=== PATIENT | male | born 1980 | race Caucasian/White ===

== ENCOUNTER 2017-01-22 12:20 | Inpatient (IN) | payer OTHER ==
[~2017-01-22] VITALS: Ht 190.5 cm; Wt 95.0 kg
[2017-01-22] VITALS (7 sets, daily range): BP systolic 117–148; BP diastolic 58–92; PULSE 76–84; RESP 15–18; TEMP 97.8–99.7; O2SAT 96–100
[2017-01-22] MEDS ORDERED: IOHEXOL 350 MG/ML 10 ML VIAL (for RAD DIAG) IVCONTRAST ONE (12:21)
[2017-01-22 12:47] LABS: BASOPHIL % 0.2 % (0.0-2.0); EOSINOPHIL % 0.7 % (0.0-4.0); HEMATOCRIT 46.8 % (39.0-51.0); I-STAT POTASSIUM 3.8 MMOL/L (3.5-4.9); I-STAT SODIUM 140 MMOL/L (138-146); LYMPH % 16.4 % (9.0-44.0); LYMPHOCYTE # 1.1 TH/MM3 (1.0-4.8); MEAN CELL VOLUME 87.5 FL (80.0-100.0); MEAN CORPUSCULAR HEMOGLOBIN 29.9 PG (27.0-34.0); MEAN CORPUSCULAR HGB CONC 34.2 % (32.0-36.0); NEUT % 77.7 % (16.0-70.0); PLATELET COUNT 208 TH/MM3 (150-450); RED BLOOD COUNT 5.35 MIL/MM3 (4.50-5.90); RED CELL DISTRIBUTION WIDTH 13.6 % (11.6-17.2); WHITE BLOOD COUNT 6.5 TH/MM3 (4.0-11.0)
[2017-01-22 12:48] LABS: HEMO FLAGS AUTO DIFF
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
[2017-01-22 12:57] LABS: APTT (PATIENT) 24.3 SEC (24.3-30.1); INTERNATIONAL NORMALIZED RATIO 1.1 RATIO; PROTHROMBIN TIME - PATIENT 11.4 SEC (9.8-11.6)
--- NOTE | 2017-01-22 12:59 | RADRPT ---
EXAM DATE/TIME: 01/22/2017 12:24 [facility] COMPARISON: No previous studies available for comparison. INDICATIONS : Trauma RADIATION DOSE: 38.77 CTDIvol (mGy) MEDICAL HISTORY : Non-responsive. SURGICAL HISTORY : Non-responsive. ENCOUNTER: Initial ACUITY: 1 day PAIN SCALE: 10/10 LOCATION: Bilateral neck TECHNIQUE: Volumetric scanning of the cervical spine was performed. Multiplanar reconstructions in the sagittal, coronal and oblique axial planes were performed. Using automated exposure control and adjustment o f the mA and/or kV according to patient size, radiation dose was kept as low as reasonably achievable to obtain optimal diagnostic quality images. DICOM format image data is available electronically f or review and comparison. FINDINGS: No acute fracture or prevertebral soft tissue swelling is noted. The bony relationship and alignment between C1 and C2 is well maintained. Mild right neural foraminal narrowing is noted at C3-4, C4-5 an d C5-6. Small central disc bulges are noted at C4-5 and C5-6. Mild diffuse disc bulge is noted at C6- 7. Mild spinal stenoses are noted at C4-5, C5-6 and C6-7. CONCLUSION: 1. No acute fracture or prevertebral soft tissue swelling. 2. Mild spinal stenoses at C4-5 and C5-6 and C6-7. 3. Small central disc bulges at C4-5 and C5-6. 4. Mild diffuse disc bulge at C6-7. 5. Mild right neuroforaminal narrowing at C3-4, C4-5 and C5-6. Jacob Siddiqi MD on January 22, 2017 at 12:53 Board Certified Radiologist. This report was verified electronically.
--- NOTE | 2017-01-22 13:04 | RADRPT ---
EXAM DATE/TIME: 01/22/2017 12:31 [facility] COMPARISON: No previous studies available for comparison. INDICATIONS : Trauma IV CONTRAST: 69 cc Omnipaque 350 (iohexol) IV ; Cumulative dose for multiple exams. RADIATION DOSE: 10.11 CTDIvol (mGy) ; Combined studies - Thorax/Abdomen/Pelvis MEDICAL HISTORY : None SURGICAL HISTORY : None. ENCOUNTER: Initial ACUITY: 1 day PAIN SCALE: 10/10 LOCATION: Bilateral chest TECHNIQUE: Volumetric scanning of the chest was performed. Using automated exposure control and adjustment of t he mA and/or kV according to patient size, radiation dose was kept as low as reasonably achievable to obtain optimal diagnostic quality images. DICOM format image data is available electronically for review and comparison. Follow-up recommendations for detected pulmonary nodules are based at a minimum on nodule size and pa tient risk factors according to Fleischner Society Guidelines. FINDINGS: LUNGS: Minimal posterior atelectatic changes are noted bilaterally. There is no consolidation or pneumothora x. No concerning pulmonary nodule is visualized. PLEURA: There is no pleural thickening or pleural effusion. MEDIASTINUM: The heart and great vessels demonstrate no acute abnormality. There is no mediastinal or hilar lymph adenopathy. AXILLAE: Within normal limits. No lymphadenopathy. SKELETAL: Within normal limits for patient age. MISCELLANEOUS: The visualized upper abdominal organs demonstrate no acute abnormality. There is an 8mm low-density l esion within the medial segment of the left lobe of the liver which is too small for accurate density measurement. CONCLUSION: 1. Minimal posterior bibasilar atelectatic changes. 2. No significant sequelae of intrathoracic trauma. 3. 8mm low-density lesion within the medial segment of the left lobe of the liver which is too small for accurate density measurement. Jacob Siddiqi MD on January 22, 2017 at 12:59 Board Certified Radiologist. This report was verified electronically.
[2017-01-22 13:06] LABS: ALCOHOL LESS THAN 3 MG/DL (0-5)
[2017-01-22 13:21] LABS: BANDS 8 % (0-6); METAMYELOCYTES 1 % (0-1); MYELOCYTES 1 % (0-0); POLYS (SEG NEUTROPHILS) 67 % (16-70); WBC DIFF SAMPLE 100
[2017-01-22 13:22] LABS: PLATELET ESTIMATE SMEAR NORMAL (NORMAL); PLATELET MORPHOLOGY NORMAL (NORMAL); SCAN/DIFF FINAL DIFF MANUAL
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
--- NOTE | 2017-01-22 13:24 | RADRPT ---
EXAM DATE/TIME: 01/22/2017 12:33 [facility] COMPARISON: None INDICATIONS : Truama IV CONTRAST: 68 cc Omnipaque 300 (iohexol) IV ; Cumulative dose for multiple exams. ORAL CONTRAST: No oral contrast ingested. RADIATION DOSE: 10.11 CTDIvol (mGy) ; Combined studies - Thorax/Abdomen/Pelvis MEDICAL HISTORY : None SURGICAL HISTORY : None. ENCOUNTER: Initial ACUITY: 1 day PAIN SCALE: 10/10 LOCATION: Bilateral TECHNIQUE: Volumetric scanning of the abdomen and pelvis was performed. Using automated exposure control and ad justment of the mA and/or kV according to patient size, radiation dose was kept as low as reasonably achievable to obtain optimal diagnostic quality images. DICOM format image data is available electro nically for review and comparison. FINDINGS: LOWER LUNGS: Mild bibasilar groundglass opacities consistent with atelectasis. LIVER: Subcentimeter hypodense lesion in the left lobe of the liver which is too small to characterize. The liver is otherwise unremarkable without evidence for acute injury. Gallbladder is unremarkable by CT. SPLEEN: Normal size without lesion. PANCREAS: Within normal limits. KIDNEYS: 2 mm punctate calcified calyceal calculus in the superior pole of the left kidney. Kidneys otherwise demonstrate symmetrical enhancement without evidence for acute injury. No hydronephrosis. No signific ant perinephric collection. ADRENAL GLANDS: Within normal limits. VASCULAR: There is no aortic aneurysm. BOWEL/MESENTERY: The stomach, small bowel, and colon demonstrate no acute abnormality. There is no free intraperitone al air or fluid. ABDOMINAL WALL: Very small fat containing periumbilical anterior abdominal wall hernia. RETROPERITONEUM: There is mild soft tissue stranding and likely subtle hematoma in the right anterior paraspinal regio n. BLADDER: No wall thickening or mass. REPRODUCTIVE: Within normal limits. INGUINAL: There is no lymphadenopathy or hernia. MUSCULOSKELETAL: There is superior endplate compression deformity at L2. Remaining osseous structures appear intact. CONCLUSION: 1. Mild superior endplate compression deformity of L2 vertebral body with adjacent retroperitoneal so ft tissue stranding/trace hematoma consistent with acute traumatic compression fracture. 2. Ancillary findings include 2 mm nonobstructing superior pole calyceal calculus in the left kidney, very small fat containing periumbilical anterior abdominal wall hernia and subcentimeter hypodense l esion in the left lobe of the liver which is too small to fully characterize. Sd Meyers MD on January 22, 2017 at 13:14 Board Certified Radiologist. This report was verified electronically.
--- NOTE | 2017-01-22 13:31 | RADRPT ---
EXAM DATE/TIME: 01/22/2017 12:33 [facility] COMPARISON: No previous studies available for comparison. INDICATIONS : Truama. IV CONTRAST: 69 cc Omnipaque 350 (iohexol) IV ; Cumulative dose for multiple exams. RADIATION DOSE: 10.11 CTDIvol (mGy) MEDICAL HISTORY : None SURGICAL HISTORY : None. ENCOUNTER: Initial ACUITY: 1 day PAIN SCALE: 7/10 LOCATION: Bilateral Umbilical TECHNIQUE: Volumetric scanning of the lumbar spine was performed. Multiplanar reconstructions in the sagittal, coronal and oblique axial planes were performed. Using automated exposure control and adjustment of the mA and/or kV according to patient size, radiation dose was kept as low as reasonably achievable t o obtain optimal diagnostic quality images. DICOM format image data is available electronically for review and comparison. FINDINGS: Mild superior endplate compression fracture at L2. No definite retropulsion of posterior fragments. D egenerative disc disease at L5-S1. L1-L2:. L2-L3: The disc, uncovertebral joints, central canal, foramina, and facets are normal. L3-L4: The disc, uncovertebral joints, central canal, foramina, and facets are normal. L4-L5: The disc, uncovertebral joints, central canal, foramina, and facets are normal. L5-S1: The disc, uncovertebral joints, central canal, foramina, and facets are normal. CONCLUSION: 1. Mild superior endplate compression fracture at L2. 2. Degenerative disc disease L5-S1. 3. Mild broad-based disc bulge at L1-2. Tulio Maldonado MD on January 22, 2017 at 13:27 Board Certified Radiologist. This report was verified electronically.
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
[2017-01-22] MEDS ORDERED: MORPHINE SULFATE 4 MG/ML INJ IV PUSH ONE (14:00)
--- NOTE | 2017-01-22 14:00 | RADRPT ---
EXAM DATE/TIME: 01/22/2017 12:33 [facility] COMPARISON: No previous studies available for comparison. INDICATIONS : TRAUMA parachut did not open. IV CONTRAST: 69 cc Omnipaque 350 (iohexol) IV ; Cumulative dose for multiple exams. RADIATION DOSE: 10.11 CTDIvol (mGy) ; Combined studies MEDICAL HISTORY : None SURGICAL HISTORY : None. ENCOUNTER: Initial ACUITY: 1 day PAIN SCALE: 10/10 LOCATION: Bilateral chest TECHNIQUE: Volumetric scanning of the thoracic spine was performed. Multiplanar reconstructions in the sagittal , coronal and oblique axial planes were performed. Using automated exposure control and adjustment o f the mA and/or kV according to patient size, radiation dose was kept as low as reasonably achievable to obtain optimal diagnostic quality images. DICOM format image data is available electronically fo r review and comparison. FINDINGS: The vertebral bodies of the thoracic spine are in normal alignment without evidence of subluxation. Vertebral body height is maintained. No fractures are seen. Schmorl node deformity superior endplate T11. T1-T2: Normal. T2-T3: The thecal sac has a normal diameter. No evidence of disc bulge or protrusion. T3-T4: The thecal sac has a normal diameter. No evidence of disc bulge or protrusion. T4-T5: The thecal sac has a normal diameter. No evidence of disc bulge or protrusion. T5-T6: The thecal sac has a normal diameter. No evidence of disc bulge or protrusion. T6-T7: The thecal sac has a normal diameter. No evidence of disc bulge or protrusion. T7-T8: The thecal sac has a normal diameter. No evidence of disc bulge or protrusion. T8-T9: The thecal sac has a normal diameter. No evidence of disc bulge or protrusion. T9-T10: The thecal sac has a normal diameter. No evidence of disc bulge or protrusion. T10-T11: The thecal sac has a normal diameter. No evidence of disc bulge or protrusion. T11-T12: The thecal sac has a normal diameter. No evidence of disc bulge or protrusion. T12-L1: The thecal sac has a normal diameter. No evidence of disc bulge or protrusion. CONCLUSION: 1. No fracture or subluxation. Tulio Maldonado MD on January 22, 2017 at 13:23 Board Certified Radiologist. This report was verified electronically.
[2017-01-22] MEDS ORDERED: ONDANSETRON HCL 4 MG/2 ML VIAL IV PUSH PRN (16:45)
[2017-01-22] MEDS ORDERED: Post-op Orders (for Pharmacy) XX ONE (16:45)
[2017-01-22] MEDS ORDERED: NALOXONE HCL 0.4 MG/ML AMP IV PUSH PRN (16:45)
[2017-01-22] MEDS: PANTOPRAZOLE SOD 40 MG DELAYED RELEASE TAB PO SCH (17:38)
[2017-01-22] MEDS: oxyCODONE/ACETAMINOPHEN 5 MG/325 MG TAB PO PRN (17:38)
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
[2017-01-22] MEDS: MORPHINE SULFATE 2 MG/ML INJ IV PRN ×3 (18:32→23:35)
[2017-01-22] MEDS: SODIUM CHLORIDE 0.9% FLUSH 10 ML FLUSH IV FLUSH PRN ×2 (18:32→23:36)
[2017-01-22] MEDS ORDERED: ENALAPRILAT 1.25 MG/ML VIAL IV PUSH PRN (19:30)
[2017-01-22] MEDS ORDERED: LACTULOSE SYRUP 20 GM/30 ML CUP PO PRN (20:00)
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
[2017-01-22] MEDS ORDERED: DOCUSATE SODIUM 100 MG CAP PO SCH (21:00)
[2017-01-22] MEDS: REMOVE OLD LIDOCAINE PATCH T-DERMAL SCH (21:00)
[2017-01-22] MEDS: ACETAMINOPHEN 1000 MG/100 ML 100 ML IV SCH (21:14)
[2017-01-22] MEDS: METHOCARBAMOL 500 MG TAB PO SCH (21:17)
[2017-01-22] MEDS: SODIUM CHLORIDE 0.9% FLUSH 10 ML FLUSH IV FLUSH SCH (21:17)
[2017-01-22] MEDS: DOCUSATE SODIUM 50 MG/SENNA 8.6 MG TAB PO SCH (21:17)
[2017-01-22] MEDS: LIDOCAINE HCL 5% PATCH T-DERMAL SCH (21:56)
[2017-01-23] MEDS: ACETAMINOPHEN 1000 MG/100 ML 100 ML IV SCH ×3 (02:26→14:30)
[2017-01-23] MEDS: MORPHINE SULFATE 2 MG/ML INJ IV PRN ×5 (02:26→21:52)
[2017-01-23] MEDS: SODIUM CHLORIDE 0.9% FLUSH 10 ML FLUSH IV FLUSH PRN ×3 (02:27→19:18)
[2017-01-23 03:10] VITALS: BP 119/63; PULSE 68; RESP 17; TEMP 98.7; O2SAT 95
[2017-01-23] MEDS: oxyCODONE/ACETAMINOPHEN 5 MG/325 MG TAB PO PRN ×2 (04:13→11:47)
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
[2017-01-23] MEDS: METHOCARBAMOL 500 MG TAB PO SCH ×3 (05:41→21:51)
[2017-01-23 07:12] LABS: BASOPHIL % 0.3 % (0.0-2.0); EOSINOPHIL # 0.1 TH/MM3 (0-0.4); EOSINOPHIL % 1.5 % (0.0-4.0); HEMATOCRIT 45.4 % (39.0-51.0); HEMO FLAGS DIFF FINAL; LYMPH % 23.3 % (9.0-44.0); LYMPHOCYTE # 1.4 TH/MM3 (1.0-4.8); MEAN CELL VOLUME 87.2 FL (80.0-100.0); MEAN CORPUSCULAR HEMOGLOBIN 29.7 PG (27.0-34.0); MEAN CORPUSCULAR HGB CONC 34.1 % (32.0-36.0); MONO % 9.2 % (0.0-8.0); NEUT % 65.7 % (16.0-70.0); PLATELET COUNT 152 TH/MM3 (150-450); RED CELL DISTRIBUTION WIDTH 13.3 % (11.6-17.2)
[2017-01-23 07:27] VITALS: BP 111/68; PULSE 70; RESP 18; TEMP 98.7; O2SAT 96
[2017-01-23] MEDS: SODIUM CHLORIDE 0.9% FLUSH 10 ML FLUSH IV FLUSH SCH ×2 (08:43→21:48)
[2017-01-23] MEDS: DOCUSATE SODIUM 50 MG/SENNA 8.6 MG TAB PO SCH ×2 (08:43→21:48)
[2017-01-23] MEDS: LIDOCAINE HCL 5% PATCH T-DERMAL SCH (08:44)
--- NOTE | 2017-01-23 09:35 | PD.CONS ---
HPI Consult Requested By Primary Care Physician Unknown Past Family Social History Allergies: Coded Allergies: No Known Allergies (Unverified , 01/22/17) Physical Exam Vital Signs Vital Signs Date Time Temp Pulse Resp B/P (MAP) Pulse Ox O2 Delivery O2 Flow Rate FiO2 01/23/17 07:27 98.7 70 18 111/68 (82) 96 01/23/17 05:13 18 01/23/17 03:10 98.7 68 17 119/63 (81) 95 01/22/17 23:40 18 01/22/17 23:05 98.6 78 16 117/58 (77) 98 01/22/17 21:44 18 01/22/17 20:28 99.7 84 17 125/70 (88) 96 01/22/17 17:55 97.8 80 18 133/83 (100) 97 01/22/17 15:10 85 17 147/77 (100) 98 01/22/17 13:16 76 15 99 01/22/17 13:11 98.2 76 15 148/92 (110) 99 01/22/17 13:11 99 Room Air 01/22/17 13:11 98.2 76 15 148/92 (110) 99 01/22/17 13:05 98.2 76 15 148/92 (110) 99 01/22/17 12:22 100 21 Laboratory Laboratory Tests Test 01/22/17 12:24 01/23/17 06:15 White Blood Count 6.5 6.0 Red Blood Count 5.35 5.20 Hemoglobin 16.0 15.5 Bedside Hemoglobin 15.0 Hematocrit 46.8 45.4 Bedside Hematocrit 44.0 Mean Corpuscular Volume 87.5 87.2 Mean Corpuscular Hemoglobin 29.9 29.7 Mean Corpuscular Hemoglobin Concent 34.2 34.1 Red Cell Distribution Width 13.6 13.3 Platelet Count 208 152 Mean Platelet Volume 8.4 8.3 Neutrophils (%) (Auto) 77.7 65.7 Lymphocytes (%) (Auto) 16.4 23.3 Monocytes (%) (Auto) 5.0 9.2 Eosinophils (%) (Auto) 0.7 1.5 Basophils (%) (Auto) 0.2 0.3 Neutrophils # (Auto) 5.0 4.0 Lymphocytes # (Auto) 1.1 1.4 Monocytes # (Auto) 0.3 0.6 Eosinophils # (Auto) 0.0 0.1 Basophils # (Auto) 0.0 0.0 CBC Comment AUTO DIFF DIFF FINAL Differential Total Cells Counted 100 Neutrophils % (Manual) 67 Band Neutrophils % 8 Lymphocytes % 17 Monocytes % 6 Neutrophils # (Manual) 5.0 Metamyelocytes 1 Myelocytes 1 Differential Comment FINAL DIFF MANUAL Platelet Estimate NORMAL Platelet Morphology Comment NORMAL Prothrombin Time 11.4 Prothromb Time International Ratio 1.1 Activated Partial Thromboplast Time 24.3 Bedside Sodium 140 Bedside Potassium 3.8 Bedside Chloride 105 Bedside Blood Urea Nitrogen 18 Bedside Creatinine 1.1 Bedside Glucose 102 Ethyl Alcohol Level LESS THAN 3 Result Diagram: 01/23/17 0615 Mulugeta Muñoz MD Jan 23, 2017 09:35
[2017-01-23 11:51] VITALS: BP 119/76; PULSE 69; RESP 18; TEMP 98.1; O2SAT 97
--- NOTE | 2017-01-23 13:48 | EKG ---
Date Performed: 01/22/2017 Time Performed: 13:33:56 PTAGE: 89 years EKG: Sinus rhythm POSSIBLE LEFT ATRIAL ENLARGEMENT BORDERLINE ECG NO PREVIOUS TRACING DOCTOR: Brittany Jones Interpretating Date/Time 01/23/2017 13:46:42
--- NOTE | 2017-01-23 14:08 | HHI.NSPN ---
Note Status Status: Progress Note Interval History Diagnosis L2 fracture Interval History This is a 36 year-old male who is a [employer], was involved in a exercise when he hit his head probably against the edge of [employer] exit ramp and lost consciousness. No seizure activity reported. No tongue biting. No incontinence of stool or urine. He came down on a parachute and was brought in as Priority Two Trauma Alert to our institution, complaining of pain in his left chest and back. The patient was worked up and found to have L2 end plate fracture without any protrusion or neurologic deficit. He also has left chest pain but no rib fractures are noted. He was moving all 4 extremities. He denies any focal motor weakness. He denies any sensory loss. A neurosurgical consultation was requested 01/23. She remains very painful. MRI of the spine was then. No focal deficits Labs, Micro, & Vital Signs Results Date Time Temp Pulse Resp B/P (MAP) Pulse Ox O2 Delivery O2 Flow Rate FiO2 01/23/17 11:51 98.1 69 18 119/76 (90) 97 01/23/17 07:27 98.7 70 18 111/68 (82) 96 01/23/17 05:13 18 01/23/17 03:10 98.7 68 17 119/63 (81) 95 01/22/17 23:40 18 01/22/17 23:05 98.6 78 16 117/58 (77) 98 01/22/17 21:44 18 01/22/17 20:28 99.7 84 17 125/70 (88) 96 01/22/17 17:55 97.8 80 18 133/83 (100) 97 01/22/17 15:10 85 17 147/77 (100) 98 01/24/17 07:00 Output Total 1000 ml Balance -1000 ml Constitutional Vital Signs Date Time Temp Pulse Resp B/P (MAP) Pulse Ox O2 Delivery O2 Flow Rate FiO2 01/23/17 11:51 98.1 69 18 119/76 (90) 97 01/23/17 07:27 98.7 70 18 111/68 (82) 96 01/23/17 05:13 18 01/23/17 03:10 98.7 68 17 119/63 (81) 95 01/22/17 23:40 18 01/22/17 23:05 98.6 78 16 117/58 (77) 98 01/22/17 21:44 18 01/22/17 20:28 99.7 84 17 125/70 (88) 96 01/22/17 17:55 97.8 80 18 133/83 (100) 97 01/22/17 15:10 85 17 147/77 (100) 98 01/24/17 07:00 Output Total 1000 ml Balance -1000 ml Review of Systems Except as stated in HPI: all other systems reviewed are Neg Physical Exam Mr Darnell is alert, awake and oriented to time, place and person. Speech is fluent. Higher cognitive functions are normal. GCS 15 Cranial nerve examination demonstrates the pupils to be equal, round, and reactive to light. Extra-ocular movements are intact. Facial motor and sensory function are normal and symmetrical. Gross hearing is intact, bilaterally. The uvula is midline and elevates symmetrically with the soft palate. Sternocleidomastoid and trapezius muscles have normal and symmetrical strength. Other cranial nerves are intact. Neck is soft and supple. Cervical spine has a full range of motion in anterior flexion, extension, lateral bending, and rotation without pain. There is no tenderness to palpation to the spinous processes or paraspinal muscles. Muscle testing reveals normal bulk and tone overall without rigidity, spasticity , fasciculations, or atrophy. Muscle strength is 5/5 in all muscle groups of both upper extremities including deltoid, biceps, triceps, brachioradialis, wrist extension and truck farmer. In the lower extremities, strength is 5/5 in both iliopsoas, quadriceps, hamstrings, plantar flexion, dorsiflexion, and extensor hallicus longus. Sensory examination is intact to light touch and sharp/dull discrimination in both the upper and lower extremities, symmetrically. Deep tendon reflexes are 2+ and symmetrical in the biceps, triceps, and brachioradialis, bilaterally, in the upper extremities. In the lower extremities , the patellar and Achilles are 2+, bilaterally. There is a bilateral plantar flexion response. Hoffmanns sign is negative. There is no clonus or other abnormal reflexes noted. Cerebellar examination is intact to [id number] test, rapid rhythmic alternating motion. There is no dysmetria, dysdiadochokinesia, truncal ataxia, or tremor. Medications Current Medications Current Medications Iohexol (Omnipaque 350 Inj) 69 ml STK-MED ONCE IVCONTRAST Last administered on 01/22/17 12:21; Start 01/22/17 at 12:21; Stop 01/22/17 at 13:38; Status DC Morphine Sulfate (Morphine Inj) 4 mg ONCE ONCE IV PUSH Last administered on 14:05; Start 01/22/17 at 14:00; Stop 01/22/17 at 14:01; Status DC Sodium Chloride (NS Flush) 2 ml UNSCH PRN IV FLUSH FLUSH AFTER USING IV ACCESS Last administered on 01/23/17 02:27; Start 01/22/17 at 16:45 Sodium Chloride (NS Flush) 2 ml BID IV FLUSH Last administered on 01/23/17 08 :43; Start 01/22/17 at 21:00 Ondansetron HCl (Zofran Inj) 4 mg Q6H PRN IV PUSH NAUSEA OR VOMITING; Start at 16:45 Pantoprazole Sodium (Protonix) 40 mg Q24H PO Last administered on 01/22/17 17 :38; Start 01/22/17 at 18:00 Docusate Sodium (Colace) 100 mg BID PO ; Start 01/22/17 at 21:00; Stop at 21:00; Status DC Miscellaneous Information (Post-op Orders (for Pharmacy)) STAT ONCE XX ; Start 01/22/17 at 16:45; Stop 01/22/17 at 17:25; Status DC Oxycodone/ Acetaminophen (Percocet 5-325 Mg) 1 tab Q4H PRN PO PAIN SCALE 3 TO 5 Last administered on 01/23/17 11:47; Start 01/22/17 at 16:45 Morphine Sulfate (Morphine Inj) 4 mg Q2H PRN IV PAIN 6-10 Last administered on 01/23/17 08:44; Start 01/22/17 at 17:30 Naloxone HCl (Narcan Inj) 0.4 mg UNSCH PRN IV PUSH SEE LABEL COMMENTS; Start 01/22/17 at 16:45 Methocarbamol (Robaxin) 500 mg Q8HR PO Last administered on 01/23/17 05:41; Start 01/22/17 at 22:00 Lidocaine HCl (Lidoderm 5% Patch.12 Hr) 1 patch DAILY T-DERMAL Last administered on 01/23/17 08:44; Start 01/22/17 at 19:30 Acetaminophen 100 ml @ 400 mls/hr Q6H IV Last administered on 01/23/17 08:19 ; Start 01/22/17 at 19:30; Stop 01/23/17 at 19:29 Senna/Docusate Sodium (Inna-Colace) 2 tab BID PO Last administered on 08:43; Start 01/22/17 at 21:00 Lactulose (Lactulose Liq) 30 ml DAILY PRN PO No BM in 2 days; Start 01/22/17 at 20:00 Enalaprilat (Vasotec Inj) 1.25 mg Q6H PRN IV PUSH SBP>160, DBP>90; Start 01/22 at 19:30 Miscellaneous Information 1 Q24H T-DERMAL ; Start 01/22/17 at 21:00 Medical Decision Making MDM Remarks Last 48 hours Impressions Chest X-Ray 01/23/17 0600 Signed Impressions: Service Date/Time: January 04:50 - CONCLUSION: Patchy non-consolidative medial left lower lung infiltrates. Chase Alvarenga MD Thoracic Spine CT 01/22/17 1224 Signed Impressions: Service Date/Time: Sunday, January 22, 2017 12:33 - CONCLUSION: 1. No fracture or subluxation. Tulio Maldonado MD Lumbar Spine CT 01/22/17 1224 Signed Impressions: Service Date/Time: Sunday, January 22, 2017 12:33 - CONCLUSION: 1. Mild superior endplate compression fracture at L2. 2. Degenerative disc disease L5-S1. 3. Mild broad-based disc bulge at L1-2. Tulio Maldonado MD Head CT 01/22/17 1224 Signed Impressions: Service Date/Time: Sunday, January 22, 2017 12:24 - CONCLUSION: No acute intracranial disease. Tulio Maldonado MD Chest X-Ray 01/22/17 1224 Signed Impressions: Service Date/Time: Sunday, January 22, 2017 12:22 - CONCLUSION: No acute disease. Jacob Siddiqi MD Chest CT 01/22/17 1224 Signed Impressions: Service Date/Time: Sunday, January 22, 2017 12:31 - CONCLUSION: 1. Minimal posterior bibasilar atelectatic changes. 2. No significant sequelae of intrathoracic trauma. 3. 8mm low-density lesion within the medial segment of the left lobe of the liver which is too small for accurate density measurement. Jacob Siddiqi MD Cervical Spine CT 01/22/17 1224 Signed Impressions: Service Date/Time: Sunday, January 22, 2017 12:24 - CONCLUSION: 1. No acute fracture or prevertebral soft tissue swelling. 2. Mild spinal stenoses at C4-5 and C5-6 and C6-7. 3. Small central disc bulges at C4-5 and C5-6. 4. Mild diffuse disc bulge at C6-7. 5. Mild right neuroforaminal narrowing at C3-4, C4-5 and C5-6. Jacob Siddiqi MD Abdomen/Pelvis CT 01/22/17 1224 Signed Impressions: Service Date/Time: Sunday, January 22, 2017 12:33 - CONCLUSION: 1. Mild superior endplate compression deformity of L2 vertebral body with adjacent retroperitoneal soft tissue stranding/trace hematoma consistent with acute traumatic compression fracture. 2. Ancillary findings include 2 mm nonobstructing superior pole calyceal calculus in the left kidney, very small fat containing periumbilical anterior abdominal wall hernia and subcentimeter hypodense lesion in the left lobe of the liver which is too small to fully characterize. Sd Meyers MD Lumbar Spine MRI 01/22/17 0000 Signed Impressions: Service Date/Time: Sunday, January 22, 2017 19:38 - CONCLUSION: 1. Mild superior endplate compression fracture of L2 without significant retropulsion. 2. Annular tear and small disc herniation at L1-2 centrally but without stenosis. No other fracture. Johnathan Sauer MD Attending Statement Neuro. cerebral concussion. Ccontinue neuro checks in a serial fashion. L2 fracture Continue Pain control with narcotics as needed. TLSo brace Pulmonary. Continue aggressive pulmonary toilette, nasotracheal suction, and breathing treatments with nebulizers. Daily PT and OT. Ambulate today Nutrition. Oral diet Renal. Continue to monitor closely urine output, BUN and creatinine Endocrine. Continue to Monitor serial Acu checks and SSI as needed in detail ID continue to monitor for signs of infection Continue Protonix for stress ulcer prophylaxis Continue Navjot hosmichael and SCD's for DVT prophylaxis Mulugeta Muñoz MD Jan 23, 2017 14:08
[2017-01-23 16:10] VITALS: BP 130/73; PULSE 69; RESP 18; TEMP 98; O2SAT 95
[2017-01-23] MEDS: PANTOPRAZOLE SOD 40 MG DELAYED RELEASE TAB PO SCH (17:19)
[2017-01-23] MEDS ORDERED: KETOROLAC TROMETHAMINE 10 MG TAB PO PRN (20:30)
[2017-01-23 20:36] VITALS: BP_SYST 137; PULSE 78; RESP 16; TEMP 98.9; O2SAT 99
[2017-01-23] MEDS: REMOVE OLD LIDOCAINE PATCH T-DERMAL SCH (21:00)
[2017-01-23 22:39] LABS: BICARBONATE 28.1 MEQ/L (21.0-32.0)
[2017-01-23 22:40] LABS: POTASSIUM 4.1 MEQ/L (3.5-5.1)
[2017-01-23 23:43] VITALS: BP 137/80; PULSE 84; RESP 17; TEMP 102.1; O2SAT 95
[2017-01-24] VITALS (7 sets, daily range): BP systolic 120–137; BP diastolic 70–84; PULSE 56–65; RESP 18–20; TEMP 95.7–99.9; O2SAT 95–97
[2017-01-24] MEDS ORDERED: ACETAMINOPHEN 325 MG TAB PO PRN (00:15)
[2017-01-24] MEDS: MORPHINE SULFATE 2 MG/ML INJ IV PRN (01:41)
[2017-01-24] MEDS: METHOCARBAMOL 500 MG TAB PO SCH ×3 (05:13→20:28)
--- NOTE | 2017-01-24 07:08 | HHI.PR ---
Subjective Subjective Notes Late entry for 01/23/17 Complains of back and rib pain Asking when he can fly home to [place] Objective Vitals/I&O Vital Signs Date Time Temp Pulse Resp B/P (MAP) Pulse Ox O2 Delivery O2 Flow Rate FiO2 01/24/17 05:27 60 18 120/70 (87) 96 01/24/17 05:16 97.9 01/22/17 13:11 Room Air 01/22/17 12:22 21 Labs Laboratory Tests Test 01/23/17 21:50 Blood Urea Nitrogen 8 Creatinine 1.03 Random Glucose 106 Calcium Level 8.6 Sodium Level 142 Potassium Level 4.1 Chloride Level 105 Carbon Dioxide Level 28.1 Anion Gap 9 Estimat Glomerular Filtration Rate 82 Radiology Last Impressions Chest X-Ray 01/23/17 0600 Signed Impressions: Service Date/Time: January 04:50 - CONCLUSION: Patchy non-consolidative medial left lower lung infiltrates. Chase Alvarenga MD Thoracic Spine CT 01/22/17 1224 Signed Impressions: Service Date/Time: Sunday, January 22, 2017 12:33 - CONCLUSION: 1. No fracture or subluxation. Tulio Maldonado MD Lumbar Spine CT 01/22/174 Signed Impressions: Service Date/Time: Sunday, January 22, 2017 12:33 - CONCLUSION: 1. Mild superior endplate compression fracture at L2. 2. Degenerative disc disease L5-S1. 3. Mild broad-based disc bulge at L1-2. Tulio Maldonado MD Head CT 01/22/17 1224 Signed Impressions: Service Date/Time: Sunday, January 22, 2017 12:24 - CONCLUSION: No acute intracranial disease. Tulio Maldonado MD Chest CT 01/22/17 1224 Signed Impressions: Service Date/Time: Sunday, January 22, 2017 12:31 - CONCLUSION: 1. Minimal posterior bibasilar atelectatic changes. 2. No significant sequelae of intrathoracic trauma. 3. 8mm low-density lesion within the medial segment of the left lobe of the liver which is too small for accurate density measurement. Jacob Siddiqi MD Cervical Spine CT 01/22/17 1224 Signed Impressions: Service Date/Time: Sunday, January 22, 2017 12:24 - CONCLUSION: 1. No acute fracture or prevertebral soft tissue swelling. 2. Mild spinal stenoses at C4-5 and C5-6 and C6-7. 3. Small central disc bulges at C4-5 and C5-6. 4. Mild diffuse disc bulge at C6-7. 5. Mild right neuroforaminal narrowing at C3-4, C4-5 and C5-6. Jacob Siddiqi MD Abdomen/Pelvis CT 01/22/17 1224 Signed Impressions: Service Date/Time: Sunday, January 22, 2017 12:33 - CONCLUSION: 1. Mild superior endplate compression deformity of L2 vertebral body with adjacent retroperitoneal soft tissue stranding/trace hematoma consistent with acute traumatic compression fracture. 2. Ancillary findings include 2 mm nonobstructing superior pole calyceal calculus in the left kidney, very small fat containing periumbilical anterior abdominal wall hernia and subcentimeter hypodense lesion in the left lobe of the liver which is too small to fully characterize. Sd Meyers MD Lumbar Spine MRI 01/22/17 0000 Signed Impressions: Service Date/Time: Sunday, January 22, 2017 19:38 - CONCLUSION: 1. Mild superior endplate compression fracture of L2 without significant retropulsion. 2. Annular tear and small disc herniation at L1-2 centrally but without stenosis. No other fracture. Johnathan Sauer MD Narrative Exam GENERAL: 36 year old well nourished male lying in bed. SKIN: Warm and dry. HEAD: Atraumatic. Normocephalic. EYES: Pupils equal and round. No scleral icterus. No injection or drainage. ENT: No nasal bleeding or discharge. Mucous membranes pink and moist. NECK: Trachea midline. No JVD. CARDIOVASCULAR: Regular rate and rhythm. RESPIRATORY: No accessory muscle use. Clear to auscultation. Breath sounds equal bilaterally. GASTROINTESTINAL: Abdomen soft, non-tender, nondistended. MUSCULOSKELETAL: Extremities without cyanosis, or edema. MAEW, + perfused NEUROLOGICAL: Awake and alert. Normal speech. A/P Assessment and Plan [place]: [employer] jumped from a plane, striking his head on the plane as he jumped and losing consciousness. The safety mechanism deployed his parachute and patient landed, still unconscious. Complains of back and left chest pain. GCS = 15 INJURIES: Concussion L2 superior endplate fx Retroperitoneal hematoma ? pulm contusion Aspiration Diet: Regular Pulm: IS Pain: Morphine IV, Percocet, Robaxin, Lidoderm patch, IV Ofirmev Activity: OOB. PT ordered GI: PO Protonix Bowel: Inna-colace 2 tabs. PRN Lactulose. LBM 0 DVT: SCDs Concussion Supportive care Avoid second head injury Post-concussive education Neuropsychology consulted L2 superior endplate fx Neurosurgery consulted Nonoperative management Pain control TLSO brace when OOB OOB with PT MRI Lumbar- Retroperitoneal hematoma Hgb stable ? pulm contusion, Aspiration Supportive care Monitor for fevers CXR shows left sided infiltrate, F/U CXR in AM No leukocytosis Pain control Pulmonary toileting OOB Plan of care d/w RN, patient and his at bedside. CM consulted to assist with DC planning. Dispo plan depends on patient's progress with PT. Brigitte Jiménez Jan 24, 2017 07:08
[2017-01-24] MEDS: IBUPROFEN 800 MG TAB PO SCH ×3 (07:53→18:32)
[2017-01-24] MEDS: oxyCODONE/ACETAMINOPHEN 10 MG/325 MG TAB PO PRN ×4 (07:54→20:28)
[2017-01-24] MEDS: LIDOCAINE HCL 5% PATCH T-DERMAL SCH (09:00)
[2017-01-24] MEDS: SODIUM CHLORIDE 0.9% FLUSH 10 ML FLUSH IV FLUSH SCH ×2 (09:00→20:28)
[2017-01-24 11:41] LABS: BASOPHIL % 0.5 % (0.0-2.0); EOSINOPHIL # 0.2 TH/MM3 (0-0.4); EOSINOPHIL % 3.4 % (0.0-4.0); HEMATOCRIT 47.5 % (39.0-51.0); HEMO FLAGS DIFF FINAL; LYMPH % 24.4 % (9.0-44.0); LYMPHOCYTE # 1.6 TH/MM3 (1.0-4.8); MEAN CELL VOLUME 87.6 FL (80.0-100.0); MEAN CORPUSCULAR HGB CONC 34.3 % (32.0-36.0); MONO % 8.8 % (0.0-8.0); NEUT % 62.9 % (16.0-70.0); PLATELET COUNT 171 TH/MM3 (150-450); RED BLOOD COUNT 5.41 MIL/MM3 (4.50-5.90); RED CELL DISTRIBUTION WIDTH 13.6 % (11.6-17.2); WHITE BLOOD COUNT 6.4 TH/MM3 (4.0-11.0)
[2017-01-24] MEDS: LEVOFLOXACIN 500 MG TAB PO SCH (11:55)
[2017-01-24] MEDS: DOCUSATE SODIUM 50 MG/SENNA 8.6 MG TAB PO SCH ×2 (11:55→20:27)
--- NOTE | 2017-01-24 12:29 | HHI.PR ---
Subjective Subjective Notes Fevers overnight OOB with PT this AM- increased pain reported with sitting Objective Vitals/I&O Vital Signs Date Time Temp Pulse Resp B/P (MAP) Pulse Ox O2 Delivery O2 Flow Rate FiO2 01/24/17 11:58 98.3 63 18 137/84 (101) 96 01/22/17 13:11 Room Air 01/22/17 12:22 21 Labs Laboratory Tests Test 01/23/17 21:50 01/24/17 10:52 Blood Urea Nitrogen 8 Creatinine 1.03 Random Glucose 106 Calcium Level 8.6 Sodium Level 142 Potassium Level 4.1 Chloride Level 105 Carbon Dioxide Level 28.1 Anion Gap 9 Estimat Glomerular Filtration Rate 82 White Blood Count 6.4 Red Blood Count 5.41 Hemoglobin 16.3 Hematocrit 47.5 Mean Corpuscular Volume 87.6 Mean Corpuscular Hemoglobin 30.0 Mean Corpuscular Hemoglobin Concent 34.3 Red Cell Distribution Width 13.6 Platelet Count 171 Mean Platelet Volume 8.1 Neutrophils (%) (Auto) 62.9 Lymphocytes (%) (Auto) 24.4 Monocytes (%) (Auto) 8.8 Eosinophils (%) (Auto) 3.4 Basophils (%) (Auto) 0.5 Neutrophils # (Auto) 4.0 Lymphocytes # (Auto) 1.6 Monocytes # (Auto) 0.6 Eosinophils # (Auto) 0.2 Basophils # (Auto) 0.0 CBC Comment DIFF FINAL Differential Comment Radiology Last Impressions Chest X-Ray 01/23/17 0600 Signed Impressions: Service Date/Time: January 04:50 - CONCLUSION: Patchy non-consolidative medial left lower lung infiltrates. Chase Alvarenga MD Thoracic Spine CT 01/22/17 1224 Signed Impressions: Service Date/Time: Sunday, January 22, 2017 12:33 - CONCLUSION: 1. No fracture or subluxation. Tulio Maldonado MD Lumbar Spine CT 01/22/17 1224 Signed Impressions: Service Date/Time: Sunday, January 22, 2017 12:33 - CONCLUSION: 1. Mild superior endplate compression fracture at L2. 2. Degenerative disc disease L5-S1. 3. Mild broad-based disc bulge at L1-2. Tulio Maldonado MD Head CT 01/22/17 1224 Signed Impressions: Service Date/Time: Sunday, January 22, 2017 12:24 - CONCLUSION: No acute intracranial disease. Tulio Maldonado MD Chest CT 01/22/17 1224 Signed Impressions: Service Date/Time: Sunday, January 22, 2017 12:31 - CONCLUSION: 1. Minimal posterior bibasilar atelectatic changes. 2. No significant sequelae of intrathoracic trauma. 3. 8mm low-density lesion within the medial segment of the left lobe of the liver which is too small for accurate density measurement. Jacob Siddiqi MD Cervical Spine CT 01/22/17 1224 Signed Impressions: Service Date/Time: Sunday, January 22, 2017 12:24 - CONCLUSION: 1. No acute fracture or prevertebral soft tissue swelling. 2. Mild spinal stenoses at C4-5 and C5-6 and C6-7. 3. Small central disc bulges at C4-5 and C5-6. 4. Mild diffuse disc bulge at C6-7. 5. Mild right neuroforaminal narrowing at C3-4, C4-5 and C5-6. Jacob Siddiqi MD Abdomen/Pelvis CT 01/22/17 1224 Signed Impressions: Service Date/Time: Sunday, January 22, 2017 12:33 - CONCLUSION: 1. Mild superior endplate compression deformity of L2 vertebral body with adjacent retroperitoneal soft tissue stranding/trace hematoma consistent with acute traumatic compression fracture. 2. Ancillary findings include 2 mm nonobstructing superior pole calyceal calculus in the left kidney, very small fat containing periumbilical anterior abdominal wall hernia and subcentimeter hypodense lesion in the left lobe of the liver which is too small to fully characterize. Sd Meyers MD Lumbar Spine MRI 01/22/17 0000 Signed Impressions: Service Date/Time: Sunday, January 22, 2017 19:38 - CONCLUSION: 1. Mild superior endplate compression fracture of L2 without significant retropulsion. 2. Annular tear and small disc herniation at L1-2 centrally but without stenosis. No other fracture. Johnathan Sauer MD Narrative Exam GENERAL: 36 year old well nourished male lying in bed. SKIN: Warm and dry. HEAD: Atraumatic. Normocephalic. EYES: Pupils equal and round. No scleral icterus. No injection or drainage. ENT: No nasal bleeding or discharge. Mucous membranes pink and moist. NECK: Trachea midline. No JVD. CARDIOVASCULAR: Regular rate and rhythm. RESPIRATORY: No accessory muscle use. Clear to auscultation. Breath sounds equal bilaterally. GASTROINTESTINAL: Abdomen soft, non-tender, nondistended. MUSCULOSKELETAL: Extremities without cyanosis, or edema. MAEW, + perfused NEUROLOGICAL: Awake and alert. Normal speech. A/P Assessment and Plan [place]: [employer] jumped from a plane, striking his head on the plane as he jumped and losing consciousness. The safety mechanism deployed his parachute and patient landed, still unconscious. Complains of back and left chest pain. GCS = 15 INJURIES: Concussion L2 superior endplate fx Retroperitoneal hematoma ? pulm contusion Aspiration Diet: Regular Pulm: IS Pain: Morphine IV, Percocet, Robaxin, Lidoderm patch, Motrin Activity: OOB. PT ordered GI: PO Protonix Bowel: Inna-colace 2 tabs. PRN Lactulose. LBM 0 DVT: SCDs, Lovenox 40 QD Concussion Supportive care Avoid second head injury Post-concussive education Neuropsychology consulted L2 superior endplate fx Neurosurgery consulted Nonoperative management Pain control TLSO brace when OOB OOB with PT MRI Lumbar- Lovenox Retroperitoneal hematoma Hgb stable ? pulm contusion, Aspiration Supportive care Tmax 102.1 01/23: CXR shows left sided infiltrate Added PO Levaquin No leukocytosis Monitor fevers Pain control Pulmonary toileting OOB Plan of care d/w RN and patient at bedside. CM consulted to assist with DC planning. Plan to DC home when afebrile x 24 hours Brigitte Jiménez Jan 24, 2017 12:29
[2017-01-24] MEDS: ENOXAPARIN SODIUM 40 MG/0.4 ML SYRINGE SQ SCH (13:45)
--- NOTE | 2017-01-24 14:17 | PD.HHIRBSE ---
Patient History Record/History Review Reason for Referral: The patient is a 36 year old right handed male status post concussion sustained on 01/22/2017. This patient was exiting an airplane and struck his head on the ramp as he disembarked. His parachute opened during his descent, and he was found responsive on the ground. He was admitted to [facility] with an L2 end plate fracture and left chest pain, and probable concussion. His head CT was within normal limits and his labs were normal. He is referred for baseline neurobehavioral status examination per trauma protocol to assess cognitive, behavioral and emotional aspects of the injury and to provide treatment recommendations. Neuropsych Precautions: To be determined. Past Surgical/Medical History Past Surgery: No Major surgery in last 100 days: No Hx of Neuro Prob: No Hx of Musculoskeletal Pro: No Hx of Cardiovascular Prob: No Hx of Respiratory Problem: No Hx of GI Problems: No Hx of Problems: No Hx of Immuno Disor: No Hx of Endocrine Problems: No Hx of Eye Probl: No Hx of Hearing or Ear Problems: No Hx Dental Problems: No Hx Psychiatric Problems: No Hx Blood Dyscrasias: No Hx of Body/Medical Devices: No Blood Transfusion History Will receive Blood /Blood prod: Yes Hx Blood Transfusions: No Medication Active Medications Acetaminophen (Tylenol) 650 mg Q6H PRN PO Last administered on 01/24/17 00:35 ; Admin Dose 650 MG; Start 01/24/17 at 00:15 Enoxaparin Sodium (Lovenox Inj) 40 mg Q24H SQ Last administered on 01/24/17 13 :45; Admin Dose 40 MG; Start 01/24/17 at 14:00 Ibuprofen (Motrin) 800 mg Q6HR PO Last administered on 01/24/17 11:56; Admin Dose 800 MG; Start 01/24/17 at 07:00; Stop 01/27/17 at 06:59 Ketorolac Tromethamine (Toradol) 30 mg Q6H PRN PO Last administered on 03:01; Admin Dose 30 MG; Start 01/23/17 at 20:30; Stop 01/24/17 at 06:50 ; Status DC Levofloxacin (Levaquin) 500 mg DAILY PO Last administered on 01/24/17 11:55; Admin Dose 500 MG; Start 12/15/17 at 10:30; Stop 01/31/17 at 10:29 Oxycodone/ Acetaminophen (Percocet 10-325 Mg) 1 tab Q4H PRN PO Last administered on 01/24/17t 11:56; Admin Dose 1 TAB; Start 01/24/17 at 07:00 Mental Status Assessment Orientation: oriented to Self, oriented to Place, oriented to Time, oriented to Situation Mental Status: WFL: Thought processing, Language/Interactions, Attention, Learning/Memory, Problem-Solving, Visuospatial/Construction, Self-regulation, Other Observation The patient is alert and oriented to person, place, time and circumstances surrounding the reason for hospitalization. In terms of attention skills, the patient was able to remain on task and remember basic and complex instructions. In terms of memory functioning, the patient was able to remember a series of five words administered over three trials after a brief period of time. The patient initiated spontaneous conversation. Speech was characterized by adequate prosody, grammar, articulation, volume and rate. Basic naming skills were intact. Language repetition skills were intact. The patients comprehensions for basic one- and two-stage commands were intact. Basic verbal abstraction and problem-solving skills were intact. The patient appears to posses adequate insight and awareness into their situation and within the limits of this brief evaluation, adequate judgment. To assist in the diagnosis and treatment of possible concussion, the Sports Concussion Assessment Tool-5 (SCAT5) was administered to the patient by this neuropsychologist. Please note that the results of this screening measure were likely attenuated by prescribed pain medication that had previously been administered to him. The following results were obtained.~ This patients Sabina Coma Scale score at the time of [facility] evaluation is 15 (4E, 5V, 6M).~ Neuroimaging results were negative for intracranial abnormality.~ The patient endorsed 8 of 22 symptoms of concussion, with a symptom severity score of 11 of 132.~ The patient obtained an Orientation score of 5 out of 5.~ The patient obtained a Concentration score of 4 out of 5.~ The patient earned a score of 14 out of 15 on the Immediate Memory subtest of the SCAT5.~ The patients Neurological Screen was deferred given their medical condition.~ The patients Balance Examination was deferred given their medical condition.~ On Delayed Recall of the word list, the patient earned a score of 3 out of 5.~ Based on [facility] clinical evaluation which included the administration of the SCAT5, it is this clinicians judgment that this patient DID sustain at least a mild concussion related to their recent injury.~ However please note that the diagnosis of concussion is a clinical judgment, made by a medical professional. ~ The assessment tool utilized in diagnosis, SCAT5, should not be used by itself to make or exclude, the diagnosis of concussion.~ A patient may have a concussion even if their SCAT5 is normal. Impression Mild concussion Adjustment/Coping Assessment Adjustment/Coping: None: Depression, Anxiety, Pain, Apathy, Awareness, Insight Observation The patients thought content was free from suicidal, homicidal or paranoid ideation, and the patients thought processes were logical and goal-directed. The patients mood was euthymic, and the affect was stable and appropriate. Impression Normal adjustment/coping. LTG Status: Deferred STG Status: Deferred Team Members: Neuropsychologist Behavior Assessment Agitation: None Treatment Engagement: Average Observation Behaviorally, the patient demonstrated no signs of agitation, impulsivity or disinhibition. There was no remarkable evidence of a formal thought disorder or psychosis. LTG - Status: Deferred STG Status: Deferred Team Members: Neuropsychologist Diagnosis/Discharge Plan Impression This 36 year old man s/p mild concussion 2T striking his head on a disembarkation ramp from an airplane while parachuting. Neuropsychological evaluation results indicate that he sustained a mild concussion, with minimal residual neurocognitive findings or subsequent symptoms other than mild headache , dizziness, slowed mentation and fatigue, keeping in mind also that these results are attenuated by prescribed pain medication that was administered to him prior to this evaluation. In terms of prognosis, it is entirely anticipated that this patient will make a complete recovery. For now, the usual recommendations following concussion are made, that include that the patient limit physical activity to routine daily activities (avoid exercise, training, sports, etc.) and limit activities such as school, work and screen time to a level that does not worsen symptoms. It is also recommended that the patient avoid alcohol, prescription and non-prescription drugs without medical supervision (including sleeping tablets, aspirin, anti-inflammatory medications or stronger pain medications such as narcotics), and that he does not drive until cleared by a healthcare professional. Furthermore, if the patient notices any change in behavior, vomiting, worsening headache, double vision or excessive drowsiness, it is recommended that he telephone your doctor or the nearest hospital emergency department immediately. Diagnosis: [place] Level: VIII:Purposeful-appropriate Maximizing acute care outcome For now, it is recommended that the patient limit physical activity to routine daily activities (avoid exercise, training, sports, etc.) and limit activities such as school, work and screen time to a level that does not worsen symptoms.~ It is also recommended that the patient avoid alcohol, prescription and non- prescription drugs without medical supervision (including sleeping tablets, aspirin, anti-inflammatory medications or stronger pain medications such as narcotics), and do not drive until cleared by a healthcare professional. Furthermore, if you notice any change in behavior, vomiting, worsening headache , double vision or excessive drowsiness, please telephone your doctor or the nearest hospital emergency department immediately. Discharge Planning Anticipated Problems From a neurobehavioral perspective, there are no anticipated problems going forward, and the patient is expected to make a full neurocognitive recovery. Treatment Plan No further follow-up from a neuropsychological perspective. Discharge Needs As per neurosurgery and trauma surgeon. Thank you Thank you for the opportunity to assist in this patients care. Dustin Lagos, Ph.D., ABPP Board Certified in Clinical Neuropsychology [place] [employer] [place] Licensed Psychologist #[id number] Dustin Lagos PhD Jan 24, 2017 2:17 pm
--- NOTE | 2017-01-24 16:07 | HHI.NSPN ---
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 No seizure activity reported. No tongue biting. No incontinence of stool or urine. He came down on a parachute and was brought in as Priority Two Trauma Alert to our institution, complaining of pain in his left chest and back. The patient was worked up and found to have L2 end plate fracture without any protrusion or neurologic deficit. He also has left chest pain but no rib fractures are noted. He was moving all 4 extremities. He denies any focal motor weakness. He denies any sensory loss. A neurosurgical consultation was requested 01/23. She remains very painful. MRI of the spine was then. No focal deficits 01/24: pt seen this morning during rounds, gotten OOB yesterday with TLSO with increase back pain. c/o right side pain in the flank region. also reported of erythematous rash this morning now resolved with fevers. (Leda Mccloud) Labs, Micro, & Vital Signs Results Date Time Temp Pulse Resp B/P (MAP) Pulse Ox O2 Delivery O2 Flow Rate FiO2 01/24/17 11:58 98.3 63 18 137/84 (101) 96 01/24/17 08:03 97.6 65 18 126/82 (97) 95 01/24/17 05:27 60 18 120/70 (87) 96 01/24/17 05:16 97.9 01/24/17 02:00 99.9 01/23/17 23:43 102.1 84 17 137/80 (99) 95 01/23/17 20:36 98.9 78 16 137/ 99 01/23/17 16:10 98.0 69 18 130/73 (92) 95 01/25/17 07:00 Output Total 500 ml Balance -500 ml Constitutional Vital Signs Date Time Temp Pulse Resp B/P (MAP) Pulse Ox O2 Delivery O2 Flow Rate FiO2 01/24/17 11:58 98.3 63 18 137/84 (101) 96 01/24/17 08:03 97.6 65 18 126/82 (97) 95 01/24/17 05:27 60 18 120/70 (87) 96 01/24/17 05:16 97.9 01/24/17 02:00 99.9 01/23/17 23:43 102.1 84 17 137/80 (99) 95 01/23/17 20:36 98.9 78 16 137/ 99 01/23/17 16:10 98.0 69 18 130/73 (92) 95 01/25/17 07:00 Output Total 500 ml Balance -500 ml (Leda Mccloud) Review of Systems Constitutional: COMPLAINS OF: Fever Genitourinary: DENIES: Urinary incontinence Musculoskeletal: COMPLAINS OF: Back pain Neurologic: DENIES: Localized weakness, Paresthesias (Leda Mccloud) Physical Exam Mr Romo is alert, awake and oriented to time, place and person. Speech is fluent. Higher cognitive functions are normal. GCS 15 Cranial nerve examination: pupils equal, round, and reactive to light. EOMs are intact. Facial motor and sensory function are normal and symmetrical. The uvula is midline and elevates symmetrically with the soft palate. Sternocleidomastoid and trapezius muscles have normal and symmetrical strength. Other cranial nerves are grossly intact. Neck is soft and supple. Muscle testing reveals normal bulk and tone. Muscle strength is 5/5 in all muscle groups of both upper extremities including deltoid, biceps, triceps, brachioradialis, wrist extension and trimmer machine. In the lower extremities, strength is 5/5 in both iliopsoas, quadriceps, hamstrings, plantar flexion, dorsiflexion , and extensor hallicus longus. Sensory examination is intact to light touch and sharp/dull discrimination in both the upper and lower extremities, symmetrically. Deep tendon reflexes are 2+ and symmetrical in the biceps, triceps, and brachioradialis, bilaterally, in the upper extremities. In the lower extremities , the patellar and Achilles are 2+, bilaterally. There is a bilateral plantar flexion response. Hoffmanns sign is negative. There is no clonus. Cerebellar examination is intact to [id number] test No pain with ROM right hip (Leda Mccloud) Mr Romo is alert, awake and oriented to time, place and person. Speech is fluent. Higher cognitive functions are normal. GCS 15 Cranial nerve examination: pupils equal, round, and reactive to light. EOMs are intact. Facial motor and sensory function are normal and symmetrical. The uvula is midline and elevates symmetrically with the soft palate. Sternocleidomastoid and trapezius muscles have normal and symmetrical strength. Other cranial nerves are grossly intact. Neck is soft and supple. Muscle testing reveals normal bulk and tone. Muscle strength is 5/5 in all muscle groups of both upper extremities including deltoid, biceps, triceps, brachioradialis, wrist extension and trimmer machine. In the lower extremities, strength is 5/5 in both iliopsoas, quadriceps, hamstrings, plantar flexion, dorsiflexion , and extensor hallicus longus. Sensory examination is intact to light touch and sharp/dull discrimination in both the upper and lower extremities, symmetrically. Deep tendon reflexes are 2+ and symmetrical in the biceps, triceps, and brachioradialis, bilaterally, in the upper extremities. In the lower extremities , the patellar and Achilles are 2+, bilaterally. There is a bilateral plantar flexion response. Hoffmanns sign is negative. There is no clonus. Cerebellar examination is intact to [id number] test (Mulugeta Muñoz MD) Medications Current Medications Current Medications Medications (Trade) Dose Ordered Sig/Kaylee Route PRN Reason Start Time Stop Time Status Last Admin Dose Admin Sodium Chloride (NS Flush) 2 ml UNSCH PRN IV FLUSH FLUSH AFTER USING IV ACCESS 01/22/17 16:45 01/23/17 19:18 Sodium Chloride (NS Flush) 2 ml BID IV FLUSH 01/22/17 21:00 01/24/17 09:00 Ondansetron HCl (Zofran Inj) 4 mg Q6H PRN IV PUSH NAUSEA OR VOMITING 01/22/17 16:45 Pantoprazole Sodium (Protonix) 40 mg Q24H PO 01/22/17 18:00 01/23/17 17:19 Oxycodone/ Acetaminophen (Percocet 5-325 Mg) 1 tab Q4H PRN PO PAIN SCALE 3 TO 5 01/22/17 16:45 01/23/17 11:47 Morphine Sulfate (Morphine Inj) 4 mg Q2H PRN IV breakthrough pain 01/22/17 17:30 01/24/17 01:41 Naloxone HCl (Narcan Inj) 0.4 mg UNSCH PRN IV PUSH SEE LABEL COMMENTS 01/22/17 16:45 Methocarbamol (Robaxin) 500 mg Q8HR PO 01/22/17 22:00 01/24/17 13:45 Lidocaine HCl (Lidoderm 5% Patch.12 Hr) 1 patch DAILY T-DERMAL 01/22/17 19:30 01/23/17 08:44 Senna/Docusate Sodium (Inna-Colace) 2 tab BID PO 01/22/17 21:00 01/24/17 11:55 Lactulose (Lactulose Liq) 30 ml DAILY PRN PO No BM in 2 days 01/22/17 20:00 Enalaprilat (Vasotec Inj) 1.25 mg Q6H PRN IV PUSH SBP>160, DBP>90 01/22/17 19:30 Miscellaneous Information 1 Q24H T-DERMAL 01/22/17 21:00 01/23/17 21:00 Acetaminophen (Tylenol) 650 mg Q6H PRN PO FEVER 01/24/17 00:15 01/24/17 00:35 Oxycodone/ Acetaminophen (Percocet 10-325 Mg) 1 tab Q4H PRN PO Pain 6-10 01/24/17 07:00 01/24/17 11:56 Ibuprofen (Motrin) 800 mg Q6HR PO 01/24/17 07:00 01/27/17 06:59 01/24/17 11:56 Levofloxacin (Levaquin) 500 mg DAILY PO 01/24/17 10:30 01/31/17 10:29 01/24/17 11:55 Enoxaparin Sodium (Lovenox Inj) 40 mg Q24H SQ 01/24/17 14:00 01/24/17 13:45 (Leda Mccloud) Current Medications Current Medications Iohexol (Omnipaque 350 Inj) 69 ml STK-MED ONCE IVCONTRAST Last administered on 01/22/17t 12:21; Start 01/22/17 at 12:21; Stop 01/22/17 at 13:38; Status DC Morphine Sulfate (Morphine Inj) 4 mg ONCE ONCE IV PUSH Last administered on 14:05; Start 01/22/17 at 14:00; Stop 01/22/17 at 14:01; Status DC Sodium Chloride (NS Flush) 2 ml UNSCH PRN IV FLUSH FLUSH AFTER USING IV ACCESS Last administered on 01/23/17 19:18; Start 01/22/17 at 16:45; Stop 01/25/17 at 18:13; Status DC Sodium Chloride (NS Flush) 2 ml BID IV FLUSH Last administered on 01/25/17 09 :27; Start 01/22/17 at 21:00; Stop 01/25/17 at 18:13; Status DC Ondansetron HCl (Zofran Inj) 4 mg Q6H PRN IV PUSH NAUSEA OR VOMITING; Start at 16:45; Stop 01/25/17 at 18:13; Status DC Pantoprazole Sodium (Protonix) 40 mg Q24H PO Last administered on 01/24/17 18 :31; Start 01/22/17 at 18:00; Stop 01/25/17 at 18:13; Status DC Docusate Sodium (Colace) 100 mg BID PO ; Start 01/22/17 at 21:00; Stop at 21:00; Status DC Miscellaneous Information (Post-op Orders (for Pharmacy)) STAT ONCE XX ; Start 01/22/17 at 16:45; Stop 01/22/17 at 17:25; Status DC Oxycodone/ Acetaminophen (Percocet 5-325 Mg) 1 tab Q4H PRN PO PAIN SCALE 3 TO 5 Last administered on 01/23/17 11:47; Start 01/22/17 at 16:45; Stop at 18:13; Status DC Morphine Sulfate (Morphine Inj) 4 mg Q2H PRN IV breakthrough pain Last administered on 01/24/17 01:41; Start 01/22/17 at 17:30; Stop 01/25/17 at 18 :13; Status DC Naloxone HCl (Narcan Inj) 0.4 mg UNSCH PRN IV PUSH SEE LABEL COMMENTS; Start 01/22/17 at 16:45; Stop 01/25/17 at 18:13; Status DC Methocarbamol (Robaxin) 500 mg Q8HR PO Last administered on 01/25/17 12:55; Start 01/22/17 at 22:00; Stop 01/25/17 at 18:13; Status DC Lidocaine HCl (Lidoderm 5% Patch.12 Hr) 1 patch DAILY T-DERMAL Last administered on 01/23/17 08:44; Start 01/22/17 at 19:30; Stop 01/25/17 at 18 :13; Status DC Acetaminophen 100 ml @ 400 mls/hr Q6H IV Last administered on 01/23/17 14:30 ; Start 01/22/17 at 19:30; Stop 01/23/17 at 19:29; Status DC Senna/Docusate Sodium (Inna-Colace) 2 tab BID PO Last administered on 09:22; Start 01/22/17 at 21:00; Stop 01/25/17 at 18:13; Status DC Lactulose (Lactulose Liq) 30 ml DAILY PRN PO No BM in 2 days; Start 01/22/17 at 20:00; Stop 01/25/17 at 18:13; Status DC Enalaprilat (Vasotec Inj) 1.25 mg Q6H PRN IV PUSH SBP>160, DBP>90; Start 01/22 at 19:30; Stop 01/25/17 at 18:13; Status DC Miscellaneous Information 1 Q24H T-DERMAL Last administered on 01/23/17 21:00 ; Start 01/22/17 at 21:00; Stop 01/25/17 at 18:13; Status DC Ketorolac Tromethamine (Toradol) 30 mg Q6H PRN PO PAIN SCALE 1-10 Last administered on 01/24/17 03:01; Start 01/23/17 at 20:30; Stop 01/24/17 at 06 :50; Status DC Acetaminophen (Tylenol) 650 mg Q6H PRN PO FEVER Last administered on 00:35; Start 01/24/17 at 00:15; Stop 01/25/17 at 18:13; Status DC Oxycodone/ Acetaminophen (Percocet 10-325 Mg) 1 tab Q4H PRN PO Pain 6-10 Last administered on 01/25/17 09:25; Start 01/24/17 at 07:00; Stop 01/25/17 at 18 :13; Status DC Ibuprofen (Motrin) 800 mg Q6HR PO Last administered on 01/25/17 12:56; Start 01/24/17 at 07:00; Stop 01/25/17 at 18:13; Status DC Levofloxacin (Levaquin) 500 mg DAILY PO Last administered on 01/25/17 09:22; Start 01/24/17 at 10:30; Stop 01/25/17 at 18:13; Status DC Enoxaparin Sodium (Lovenox Inj) 40 mg Q24H SQ Last administered on 01/25/17 12:57; Start 01/24/17 at 14:00; Stop 01/25/17 at 18:13; Status DC Fentanyl (Duragesic 50 Mcg Patch.72 Hr) 1 patch ONCE ONCE T-DERMAL Last administered on 01/25/17 12:56; Start 01/25/17 at 13:00; Stop 01/25/17 at 13 :01; Status DC Miscellaneous Information 1 ONCE ONCE T-DERMAL ; Start 01/28/17 at 13:00; Stop 01/28/17 at 13:00; Status DC (Mulugeta Muñoz MD) Medical Decision Making MDM Remarks 36 y/o male acute L2 vertebral fracture following parachute accident mild post concussive syndrome nonfocal neurological examination (Leda Mccloud) Plan Plan Remarks cont nonoperative mgt with TLSO brace supprotive care prn pain encourage mobilization OOB cont mgt per trauma team ok to dc from NRS standpoint when pain controlled (Leda Mccloud) Attending Statement Neuro. cerebral concussion. Continue neuro checks. Educated in Post concusion syndrome L2 fracture Continue Pain control with narcotics as needed. TLSo brace Pulmonary. Fever. Suspected aspiration pneumonia. Follow up chest xray. Continue aggressive pulmonary toilette, nasotracheal suction, and breathing treatments with nebulizers. Daily PT and OT. Ambulate today Nutrition. Oral diet Renal. Continue to monitor closely urine output, BUN and creatinine Endocrine. Continue to Monitor serial Acu checks and SSI as needed in detail ID continue to monitor for signs of infection Continue Protonix for stress ulcer prophylaxis Continue Navjot hose and SCD's for DVT prophylaxis The exam, history, and the medical decision-making described in the above note were completed with the assistance of the mid-level provider. I reviewed and agree with the findings presented. I attest that I had a [id number] encounter with the patient on the same day, and personally performed and documented my assessment and findings in the medical record. (Mulugeta Muñoz MD) Leda Mccloud Jan 24, 2017 16:07 Mulugeta Muñoz MD Jan 24, 2017 17:18
[2017-01-24] MEDS: PANTOPRAZOLE SOD 40 MG DELAYED RELEASE TAB PO SCH (18:31)
[2017-01-24] MEDS: REMOVE OLD LIDOCAINE PATCH T-DERMAL SCH (20:29)
[2017-01-25] VITALS: BP 107/67; PULSE 58; RESP 18; TEMP 97.9; O2SAT 97
[2017-01-25] MEDS: IBUPROFEN 800 MG TAB PO SCH ×3 (00:13→12:56)
[2017-01-25] MEDS: oxyCODONE/ACETAMINOPHEN 10 MG/325 MG TAB PO PRN ×2 (04:31→09:25)
[2017-01-25] MEDS: METHOCARBAMOL 500 MG TAB PO SCH ×2 (04:31→12:55)
[2017-01-25 07:44] VITALS: BP 136/82; PULSE 60; RESP 18; TEMP 96.7; O2SAT 97
[2017-01-25] MEDS: LIDOCAINE HCL 5% PATCH T-DERMAL SCH (09:00)
[2017-01-25] MEDS: LEVOFLOXACIN 500 MG TAB PO SCH (09:22)
[2017-01-25] MEDS: DOCUSATE SODIUM 50 MG/SENNA 8.6 MG TAB PO SCH (09:22)
[2017-01-25] MEDS: SODIUM CHLORIDE 0.9% FLUSH 10 ML FLUSH IV FLUSH SCH (09:27)
[2017-01-25 11:36] VITALS: BP 144/87; PULSE 73; RESP 18; TEMP 97.5; O2SAT 95
[2017-01-25] MEDS ORDERED: METH500T3 PO (11:50)
[2017-01-25] MEDS ORDERED: OXYC1TAB36 PO (11:50)
[2017-01-25] MEDS ORDERED: LEVA500T33 PO (11:53)
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
[2017-01-25] MEDS: ENOXAPARIN SODIUM 40 MG/0.4 ML SYRINGE SQ SCH (12:57)
[2017-01-25] MEDS ORDERED: fentaNYL 50 MCG/HR PATCH T-DERMAL ONE (13:00)
[2017-01-28] MEDS ORDERED: REMOVE OLD DURAGESIC (FENTANYL) PATCH T-DERMAL ONE (13:00)
== END 2017-01-25 18:13 | disposition home or self-care (01) | DRG 963 ==
LOC: NEPI 12:20 → EDBD 14:05 → NEDA 14:05 → NEPGCP 15:43 → OBSVTOIN 16:42 → N06B 01-24 14:36
PROVIDERS: ADMIT Surgery; ATTEND Surgery
PROC: 2W35X3Z Immobilization of Back using Brace (ICD-10-PCS; principal; 2017-01-23)
DX: S32.020A Wedge compression fracture of second lumbar vertebra, initial encounter for closed fracture (principal); J69.0 Pneumonitis due to inhalation of food and vomit; S36.892A Contusion of other intra-abdominal organs, initial encounter; S27.329A Contusion of lung, unspecified, initial encounter; S06.0X9A Concussion with loss of consciousness of unspecified duration, initial encounter; R21 Rash and other nonspecific skin eruption; R40.2412 Glasgow coma scale score 13-15, at arrival to emergency department; G89.29 Other chronic pain; V97.29XA Other parachutist accident, initial encounter; Y93.39 Activity, other involving climbing, rappelling and jumping off
CPT/HCPCS: 70450; 71010; 71260; 72125; 72129; 72132; 72148; 74177; 80048; 80307; 82435; 82565; 82947; 84132; 84295; 84520; 85007; 85025; 85027; 85610; 85730; 86850; 86900; 86901; 93005; 94150; 96374; 99291; A0431-QM-SH; A0436-QM-SH; G0390; G8987-GP; G8988-GP; J0131; J1650; J2270; L0484; Q9967